=== PATIENT | female | born 1985 | race Caucasian/White ===

== ENCOUNTER 2016-10-13 21:26 | Emergency (ER) | payer MEDICAID ==
[~2016-10-13 21:26] MED LIST: DOXY100T PO
[2016-10-13 21:47] VITALS: BP 104/74; PULSE 88; RESP 20; TEMP 98.6; O2SAT 98
[2016-10-13 22:02] VITALS: BP 115/64; PULSE 90; RESP 20; O2SAT 100
[2016-10-13 23:05] VITALS: BP 101/62; PULSE 79; RESP 20; O2SAT 100
[2016-10-14] MEDS ORDERED: PREN29TA PO
[2016-10-14 00:10] VITALS: BP 100/52; PULSE 84; RESP 20; O2SAT 99
[2016-10-14] MEDS ORDERED: SODIUM CHLOR 0.9% 1000 ML INJ 1,000 ML IV ONE (00:30)
[2016-10-14 00:40] LABS: BLOOD, URINE NEG (NEG); GLUCOSE,URINE NEG (NEG); KETONE, URINE NEG (NEG); NITRITE,URINE NEG (NEG)
[2016-10-14 00:42] LABS: AUTOMATED NEUTROPHIL # 5.4 TH/MM3 (1.8-7.7); BASOPHIL % 0.3 % (0.0-2.0); EOSINOPHIL # 0.2 TH/MM3 (0-0.4); EOSINOPHIL % 1.8 % (0.0-4.0); HEMATOCRIT 38.6 % (35.0-46.0); HEMO FLAGS DIFF FINAL; LYMPH % 34.1 % (9.0-44.0); LYMPHOCYTE # 3.2 TH/MM3 (1.0-4.8); MEAN CELL VOLUME 91.8 FL (80.0-100.0); MEAN CORPUSCULAR HEMOGLOBIN 30.9 PG (27.0-34.0); MEAN CORPUSCULAR HGB CONC 33.6 % (32.0-36.0); MONO % 5.8 % (0.0-8.0); PLATELET COUNT 203 TH/MM3 (150-450); RED CELL DISTRIBUTION WIDTH 12.3 % (11.6-17.2); WHITE BLOOD COUNT 9.3 TH/MM3 (4.0-11.0)
[2016-10-14 00:46] LABS: BACTERIA, URINE OCC /hpf; COMMENT (UR) CULT NOT INDICATED; CULTURE IF INDICATED CULT NOT INDICATED; RBC, URINE 0-2 /hpf (0-3); SQUAMOUS EPITHELIAL CELL URINE > 8 /hpf (0-5); URINE COLOR YELLOW (YELLW/STRAW)
[2016-10-14 00:47] LABS: POTASSIUM 3.3 MEQ/L (3.5-5.1)
[2016-10-14 00:49] LABS: BICARBONATE 24.9 MEQ/L (21.0-32.0)
[2016-10-14] MEDS ORDERED: METOCLOPRAMIDE HCL 10 MG/2 ML VIAL IV PUSH ONE (01:15)
[2016-10-14] MEDS ORDERED: PROM25TA5 PO (02:24)
--- NOTE | 2016-10-14 02:24 | PD ---
HPI Chief Complaint: Automation Qa Lead Problem/Complaint Time Seen by Provider: 00:24 Travel History International Travel<30 days: No Contact w/Intl Traveler<30days: No Traveled to known affect area: No History of Present Illness HPI 30 year-old female presents to the emergency department by private transportation for complaint of vomiting. Patient reports she is 15 weeks . Patient states she's been going to a fly tier he does not believe in administering any prescription medications. Patient states she is subsequently made an appointment with a new ABSEILING INSTRUCTOR but has not with this individual into this upcoming week. Patient complains of frequent vomiting. No bilious emesis no hematemesis or coffee-ground emesis. Patient denies any abdominal pain. Patient's had no dysuria frequency urgency flank pain or hematuria. Patient denies vaginal discharge or vaginal bleeding. Patient states one week ago she had an ultrasound and at that time she was dated at 14 weeks. Patient reports her last period was in July and her EDC is 04/05/17. Patient is taking vitamins. Patient is Ab0. Patient states first infant at age 42 days from complication of trisomy 13. PFSH Past Medical History Narrative Medical Depression, , LEEP procedure, Ab0; no tobacco use; nursing notes reviewed Depression: Yes Cancer: Yes (LEEP PROCEDURE) Diminished Hearing: No Tetanus Vaccination: Unknown Influenza Vaccination: Yes ?: LMP: JUL 17 2016 : 3 Para: 1 Miscarriage: 1 Past Surgical History Section: Yes (X2) Social History Alcohol Use: No Tobacco Use: No Substance Use: No Allergies-Medications (Allergen,Severity, Reaction): Coded Allergies: Amoxicillin (Verified Allergy, Severe, Rash, 10/13/16) Reported Meds & Prescriptions Reported Meds & Active Scripts Active Phenergan (Promethazine HCl) 25 Mg Tab 25 Mg PO Q6H PRN Reported Plus Iron 29-1 mg ( Vit-Iron Carbonyl) 1 Tab Tab 1 Tab PO DAILY Review of Systems Except as stated in HPI: all other systems reviewed are Neg General / Constitutional: No: Fever, Chills HENT: No: Congestion Cardiovascular: No: Chest Pain or Discomfort Gastrointestinal: Positive: Nausea, Vomiting, No: Abdominal Pain, Hematemesis , Hematochezia, Loss of Appetite Genitourinary: No: Dysuria, Hematuria, Pelvic Pain, Flank Pain, Discharge, Vaginal Bleeding Musculoskeletal: No: Myalgias, Arthralgias Skin: No Rash Neurologic: No: Weakness Psychiatric: No: Anxiety Endocrine: No: Heat Intolerance Hematologic/Lymphatic: No: Easy Bruising Physical Exam Narrative GENERAL: Well-developed well-nourished female in no acute distress no respiratory distress SKIN: Warm and dry. HEAD: Normocephalic. EYES: No scleral icterus. No injection or drainage. NECK: Supple, trachea midline. No JVD or lymphadenopathy. CARDIOVASCULAR: Regular rate and rhythm without murmurs, gallops, or rubs. RESPIRATORY: Breath sounds equal bilaterally. No accessory muscle use. GASTROINTESTINAL: Abdomen soft, non-tender, nondistended. heart tones right lower quadrant 160 bpm per RN MUSCULOSKELETAL: No cyanosis, or edema. BACK: Nontender without obvious deformity. No CVA tenderness. Data Data Last Documented VS Vital Signs Date Time Temp Pulse Resp B/P Pulse Ox O2 Delivery O2 Flow Rate FiO2 10/14/16 02:45 88 20 110/74 100 10/13/16 21:47 98.6 Orders Complete Blood Count With Diff (10/14/16 00:24) Basic Metabolic Panel (Bmp) (10/14/16 00:24) Urinalysis - C+S If Indicated (10/14/16 00:24) Sodium Chlor 0.9% 1000 Ml Inj (Ns 1000 M (10/14/16 00:30) Metoclopramide Inj (Reglan Inj) (10/14/16 01:15) Potassium Chloride (Kcl) (10/14/16 02:30) Labs Laboratory Tests Test 10/14/16 00:00 White Blood Count 9.3 TH/MM3 Red Blood Count 4.20 MIL/MM3 Hemoglobin 13.0 GM/DL Hematocrit 38.6 % Mean Corpuscular Volume 91.8 FL Mean Corpuscular Hemoglobin 30.9 PG Mean Corpuscular Hemoglobin 33.6 % Concent Red Cell Distribution Width 12.3 % Platelet Count 203 TH/MM3 Mean Platelet Volume 8.9 FL Neutrophils (%) (Auto) 58.0 % Lymphocytes (%) (Auto) 34.1 % Monocytes (%) (Auto) 5.8 % Eosinophils (%) (Auto) 1.8 % Basophils (%) (Auto) 0.3 % Neutrophils # (Auto) 5.4 TH/MM3 Lymphocytes # (Auto) 3.2 TH/MM3 Monocytes # (Auto) 0.5 TH/MM3 Eosinophils # (Auto) 0.2 TH/MM3 Basophils # (Auto) 0.0 TH/MM3 CBC Comment DIFF FINAL Differential Comment Urine Color YELLOW Urine Turbidity SLIGHT Urine pH 6.0 Urine Specific [place] 1.024 Urine Protein NEG mg/dL Urine Glucose (UA) NEG mg/dL Urine Ketones NEG mg/dL Urine Occult Blood NEG Urine Nitrite NEG Urine Bilirubin NEG Urine Leukocyte Esterase NEG Urine RBC 0-2 /hpf Urine WBC 3-5 /hpf Urine Squamous Epithelial > 8 /hpf Cells Urine Bacteria OCC /hpf Microscopic Urinalysis Comment CULT NOT INDICATED Sodium Level 139 MEQ/L Potassium Level 3.3 MEQ/L Chloride Level 105 MEQ/L Carbon Dioxide Level 24.9 MEQ/L Anion Gap 9 MEQ/L Blood Urea Nitrogen 5 MG/DL Creatinine 0.48 MG/DL Estimat Glomerular Filtration 153 ML/MIN Rate Random Glucose 87 MG/DL Calcium Level 8.4 MG/DL MDM Medical Decision Making Medical Screen Exam Complete: Yes Emergency Medical Condition: Yes Medical Record Reviewed: Yes Interpretation(s) CBC & BMP Diagram 10/14/16 00:00 Vital Signs Date Time Temp Pulse Resp B/P Pulse Ox O2 Delivery O2 Flow Rate FiO2 10/14/16 02:45 88 20 110/74 100 10/14/16 00:10 84 20 100/52 99 10/13/16 23:05 79 20 101/62 100 10/13/16 23:00 88 20 10/13/16 22:02 90 20 115/64 100 10/13/16 21:47 98.6 88 20 104/74 98 Differential Diagnosis Hyperemesis gravidarum, UTI, viral syndrome, electrolyte disturbance, dehydration Narrative Course IV access obtained and normal saline administered Reglan 10 mg IV administered Patient monitored in the emergency department after completion of IV fluids patient felt well able take oral hydration well and was stable for outpatient management Patient encouraged to follow-up with her accounting intern and given prescription for Phenergan to take as needed Diagnosis Primary Impression: Vomiting Qualified Code: R11.2 - Non-intractable vomiting with nausea, unspecified vomiting type Additional Impression: Qualified Code: Z3A.15 - 15 weeks gestation of Referrals: Senior Oracle Database Administrator call for appointment Patient Instructions: General Instructions Additional Instructions: Increase fluid hydration Follow clear liquid diet for next 12-24 hours advance as tolerated to bland/ Palu diet Increase intake of potassium containing foods and beverages to dietary intake Take Phenergan as prescribed as needed for nausea and/or vomiting Follow-up with your accounting intern Return to the emergency department for any concerns or change in condition Take acetaminophen/Tylenol every 4 hours as needed for fever 100.4F or greater or for minor pain Continue take vitamins Med/Other Pt SpecificInfo: Prescription(s) given Scripts Promethazine (Phenergan)25 Mg Tab25 Mg PO Q6H PRN (Nausea/Vomiting) #15 TAB Ref 0 Prov:Miracle Clark MD 10/14/16 Disposition: 01 DISCHARGE HOME Condition: Stable Miracle Clark MD Oct 14, 2016 02:24
[2016-10-14] MEDS ORDERED: POTASSIUM CHLORIDE 20 MEQ CONTROLLED RELEASE TAB PO ONE (02:30)
[2016-10-14 02:45] VITALS: BP 110/74
[2016-10-30] MEDS ORDERED: PREN1CAP7 PO (14:24)
[2016-10-30] MEDS ORDERED: PROM25TA5 PO (14:24)
[2016-10-31] MEDS ORDERED: PROM25TA5 PO (13:22)
[2016-10-31] MEDS ORDERED: PREN1CAP7 PO (13:22)
[2016-11-14] MEDS ORDERED: PROM25TA5 PO (14:47)
[2016-11-14] MEDS ORDERED: PREN1CAP7 PO (14:47)
[2016-12-06] MEDS ORDERED: PROM25TA10 PO (12:29)
[2016-12-19] MEDS ORDERED: PROM25TA10 PO (13:53)
[2016-12-25] MEDS ORDERED: PROM25TA10 PO (12:59)
== END 2016-10-14 02:52 | disposition home or self-care (01) ==
LOC: PHED 21:26
DX: O21.9 Vomiting of pregnancy, unspecified (principal); O99.342 Other mental disorders complicating pregnancy, second trimester; Z3A.15 15 weeks gestation of pregnancy
CPT/HCPCS: 80048; 81001; 85025; 96374; 99284; J2765; J7030

== ENCOUNTER 2017-03-29 08:26 | Inpatient (IN) | payer MEDICAID ==
[~2017-03-29] VITALS: Ht 162.6 cm; Wt 74.0 kg
[~2017-03-29 08:26] MED LIST changes: -DOXY100T PO; +PREN1CAP7 PO; +PREN29TA PO; +PROM25TA10 PO
[2017-03-29] MEDS ORDERED: LACTATED RINGER'S 1000 ML INJ 1,000 ML IV ONE (09:43)
[2017-03-29 09:55] LABS: AUTOMATED NEUTROPHIL # 5.1 TH/MM3 (1.8-7.7); BASOPHIL % 0.3 % (0.0-2.0); EOSINOPHIL # 0.2 TH/MM3 (0-0.4); EOSINOPHIL % 1.9 % (0.0-4.0); HEMO FLAGS DIFF FINAL; LYMPH % 30.6 % (9.0-44.0); LYMPHOCYTE # 2.6 TH/MM3 (1.0-4.8); MEAN CELL VOLUME 88.1 FL (80.0-100.0); MEAN CORPUSCULAR HEMOGLOBIN 28.7 PG (27.0-34.0); MEAN CORPUSCULAR HGB CONC 32.5 % (32.0-36.0); NEUT % 59.2 % (16.0-70.0); PLATELET COUNT 225 TH/MM3 (150-450); RED BLOOD COUNT 3.86 MIL/MM3 (4.00-5.30); WHITE BLOOD COUNT 8.6 TH/MM3 (4.0-11.0)
[2017-03-29 09:57] LABS: BACTERIA, URINE RARE /hpf; BLOOD, URINE NEG (NEG); COMMENT (UR) CULT NOT INDICATED; CULTURE IF INDICATED CULT NOT INDICATED; GLUCOSE,URINE NEG (NEG); KETONE, URINE NEG (NEG); MUCUS URINE FEW /lpf (OCC); NITRITE,URINE NEG (NEG); SQUAMOUS EPITHELIAL CELL URINE 3 /hpf (0-5); URINE COLOR YELLOW (YELLW/STRAW)
[2017-03-29] MEDS ORDERED: LACTATED RINGER'S 1000 ML INJ 1,000 ML IV SCH ×2 (10:13→17:37)
--- NOTE | 2017-03-29 10:18 | HHI.HP ---
HPI Chief Complaint Scheduled Date Seen: Mar 29, 2017 Travel History International Travel<30 Days: No Contact w/Intl Traveler<30Days: No Known Affected Area: No History of Present Illness HPI Mrs. Suazo is a 31 y/o at 39/1 weeks gestation presenting for scheduled repeat section. She endorses good movement and denies any loss of fluid, vaginal bleeding, discharge, or dysuria. Currently she has no complaints and denies a complete ROS. She endorses intermittent N/V she self medicates with marijuana. She [facility] for [facility] and reports no complications thus far in . PMHx significant for first being an urgent for distress as baby had Trisomy 18. Weeks Gestation: 39 Para: 2 : 3 History Past Medical History Medical History: Denies Significant Hx Obstetric History Obstetric History First - Urgent at full term for distress complicated by Trisomy 18 Second - Uncomplicated repeat C section Third - Uncomplicated thus far LEEP procedure for ASCUS - repeat PAP negative Past Surgical History Narrative Surgical LEEP procedure Family History Family History: Negative Social History Alcohol Use: No Tobacco Use: No Substance Abuse: Yes (Endoreses marijuana use for N/V) Allergies-Medications (Allergen,Severity, Reaction): Coded Allergies: amoxicillin (Verified Allergy, Severe, Rash, 03/29/17) Home Meds Active Scripts Promethazine (Phenergan) 25 Mg Tablet, 25 MG PO Q6H Y for NAUSEA OR VOMITING, # 30 TAB 0 Refills Prov:Alondra Workman MENS LOCKER ROOM ATTENDANT 03/13/17 W/O Vit A W/ Fe Fumar (Citranatal [place]) 27-1-260 Mg Cap, 1 CAP PO DAILY for Nutritional Supplement, #30 CAP 11 Refills Prov:Alice Rahman CNM MENS LOCKER ROOM ATTENDANT 11/14/16 Reported Medications Promethazine (Phenergan) 25 Mg Tablet, 25 MG PO Q6H Y for NAUSEA OR VOMITING, TAB 0 Refills 12/19/16 Vit-Iron Carbonyl ( Plus Iron 29-1 mg) 1 Tab Tab, 1 TAB PO DAILY for Nutritional Supplement, #30 TAB 0 Refills 10/14/16 Discontinued Scripts Azithromycin (Azithromycin) 500 Mg Tab, 500 MG PO DAILY for Infection for 7 Days , #7 TAB 0 Refills Prov:Cole Fernandez MD 03/19/17 Review of Systems Except as stated in HPI: all other systems reviewed are Neg Physical Exam Narrative GENERAL: Well-nourished, well-developed patient. SKIN: Warm and dry. HEAD: Normocephalic and atraumatic. EYES: No scleral icterus. No injection or drainage. ENT: No nasal drainage noted. Mucous membranes pink. Airway patent. NECK: Supple, trachea midline. No JVD. CARDIOVASCULAR: Regular rate and rhythm without murmurs, gallops, or rubs. RESPIRATORY: Breath sounds equal bilaterally. No accessory muscle use. ABDOMEN/GI: Abdomen soft, non-tender, bowel sounds present, no rebound, no guarding Gravid to 39w FHTs Category: 1 Baseline: 140s Reactive: Positive Variability: Moderate Decels: None EXTREMITIES: No cyanosis or edema. BACK: Nontender without obvious deformity. No CVA tenderness. NEUROLOGICAL: Awake and alert. Motor and sensory grossly within normal limits. Five out of 5 muscle strength in all muscle groups. Normal speech. Caprini VTE Risk Assessment Caprini VTE Risk Assessment: Mod/High Risk (score >= 2) Caprini Risk Assessment Model Point Value = 1 Point Value = 2 Point Value = 3 Point Value = 5 Age 41-60 Minor surgery BMI > 25 kg/m2 Swollen legs Varicose veins or History of unexplained or recurrent spontaneous Oral contraceptives or hormone replacement Sepsis (< 1 month) Serious lung disease, including pneumonia (< 1 month) Abnormal pulmonary function Acute myocardial infarction Congestive heart failure (< 1 month) History of inflammatory bowel disease Medical patient at bed rest Age 61-74 Arthroscopic surgery Major open surgery (> 45 min) Laparoscopic surgery (> 45 min) Malignancy Confined to bed (> 72 hours) Immobilizing plaster cast Central venous access Age >= 75 History of VTE Family history of VTE Factor V Leiden Prothrombin [id number] Lupus anticoagulant Anticardiolipin antibodies Elevated serum homocysteine Heparin-induced thrombocytopenia Other congenital or acquired thrombophilia Stroke (< 1 month) Elective arthroplasty Hip, pelvis, or leg fracture Acute spinal cord injury (< 1 month) Prophylaxis Regimen Total Risk Factor Score Risk Level Prophylaxis Regimen 0-1 Low Early ambulation 2 Moderate Order ONE of the following: *Sequential Compression Device (SCD) *Heparin 5000 units SQ BID 3-4 Higher Order ONE of the following medications: *Heparin 5000 units SQ TID *Enoxaparin/Lovenox 40 mg SQ daily (WT < 150 kg, CrCl > 30 mL/min) *Enoxaparin/Lovenox 30 mg SQ daily (WT < 150 kg, CrCl > 10-29 mL/min) *Enoxaparin/Lovenox 30 mg SQ BID (WT < 150 kg, CrCl > 30 mL/min) AND/OR *Sequential Compression Device (SCD) 5 or more Highest Order ONE of the following medications: *Heparin 5000 units SQ TID (Preferred with Epidurals) *Enoxaparin/Lovenox 40 mg SQ daily (WT < 150 kg, CrCl > 30 mL/min) *Enoxaparin/Lovenox 30 mg SQ daily (WT < 150 kg, CrCl > 10-29 mL/min) *Enoxaparin/Lovenox 30 mg SQ BID (WT < 150 kg, CrCl > 30 mL/min) AND *Sequential Compression Device (SCD) Data Data Vital Signs Reviewed: Yes Orders Orders Admit To Inpatient (03/29/17 ) Code Status (03/29/17 09:43) Vital Signs (Adult) .ON ADMISSION (03/29/17 09:43) Activity Oob Ad Cristy (03/29/17 09:43) Heart (03/29/17 09:43) Urinary Catheter Management GUDELIA.Q8H (03/29/17 09:43) ^ Preps (03/29/17 09:43) Scd / Garry / Foot Pump GUDELIA.QSHIFT (03/29/17 09:43) ^ Ultrasound For Locatio (03/29/17 09:43) Diet Npo (03/29/17 Breakfast) Lactated Ringer's 1000 Ml Inj (Lr 1000 M (03/29/17 09:43) Lactated Ringer's 1000 Ml Inj (Lr 1000 M (03/29/17 10:13) Citric Acid-Sodium Citrate Liq (Bicitra (03/29/17 11:15) Type And Screen (03/29/17 09:43) Complete Blood Count With Diff (03/29/17 09:43) Urinalysis - C+S If Indicated (03/29/17 09:43) Inpatient Certification (03/29/17 ) Specimen To Be Collected PRN (03/29/17 09:43) Clindamycin Inj (Cleocin Inj) (03/29/17 10:45) Labs Laboratory Tests Test 03/29/17 09:10 White Blood Count 8.6 Red Blood Count 3.86 Hemoglobin 11.1 Hematocrit 34.0 Mean Corpuscular Volume 88.1 Mean Corpuscular Hemoglobin 28.7 Mean Corpuscular Hemoglobin Concent 32.5 Red Cell Distribution Width 14.0 Platelet Count 225 Mean Platelet Volume 9.0 Neutrophils (%) (Auto) 59.2 Lymphocytes (%) (Auto) 30.6 Monocytes (%) (Auto) 8.0 Eosinophils (%) (Auto) 1.9 Basophils (%) (Auto) 0.3 Neutrophils # (Auto) 5.1 Lymphocytes # (Auto) 2.6 Monocytes # (Auto) 0.7 Eosinophils # (Auto) 0.2 Basophils # (Auto) 0.0 CBC Comment DIFF FINAL Differential Comment Urine Color YELLOW Urine Turbidity CLEAR Urine pH 7.0 Urine Specific [place] 1.015 Urine Protein TRACE Urine Glucose (UA) NEG Urine Ketones NEG Urine Occult Blood NEG Urine Nitrite NEG Urine Bilirubin NEG Urine Urobilinogen LESS THAN 2.0 Urine Leukocyte Esterase NEG Urine RBC LESS THAN 1 Urine WBC 1 Urine Squamous Epithelial Cells 3 Urine Bacteria RARE Urine Mucus FEW Microscopic Urinalysis Comment CULT NOT INDICATED Assessment/Plan Problem List: (1) 39 weeks gestation of ICD Codes: Z3A.39 - 39 weeks gestation of Status: Acute Assessment and Plan Mrs. Suazo is a 31 y/o at 39/1 weeks gestation presenting for scheduled repeat section 1. IUP at 39 weeks -Continue routine antepartum care - uncomplicated thus far -FHT category 1, reassuring 2. Scheduled Repeat -Patient NPO for procedure -Orders placed -Penicillin allergic patient, prophylactic Clindamycin ordered SDW: Dr. Hardy Discharge Planning Pending clinical course Alex Collier MD R2 Mar 29, 2017 10:18
[2017-03-29] MEDS ORDERED: ACETAMINOPHEN 1000 MG/100 ML 100 ML IV ONE (10:41)
[2017-03-29] MEDS ORDERED: CLINDAMYCIN INJ 600 MG in SODIUM CHLORIDE 0.9% INJ 100 ML IV SCH (10:45)
[2017-03-29] MEDS ORDERED: CLINDAMYCIN PHOS 600 MG/4 ML VIAL ONE (10:59)
[2017-03-29] MEDS ORDERED: EPIDURAL-DIPHENHYDRAMINE HCL 50 MG/ML VIAL IV PUSH PRN (11:10)
[2017-03-29] MEDS ORDERED: EPIDURAL-NO SYSTEMIC NARCOTICS PRN (11:10)
[2017-03-29] MEDS ORDERED: EPIDURAL-DO NOT ADMINISTER ANTICOAGULANTS PRN (11:10)
[2017-03-29] MEDS ORDERED: EPIDURAL-DIPHENHYDRAMINE HCL 50 MG CAP PO PRN (11:10)
[2017-03-29] MEDS ORDERED: EPIDURAL-NALOXONE HCL 0.4 MG/ML AMP IV PUSH PRN (11:10)
[2017-03-29] MEDS ORDERED: CITRIC ACID-SODIUM CITRATE LIQ 30 ML UDC PO SCH (11:15)
[2017-03-29] MEDS ORDERED: ONDANSETRON HCL 4 MG/2 ML VIAL IV PUSH ONE (12:00)
[2017-03-29] MEDS ORDERED: OXYTOCIN 10 UNIT/ML AMP IV ONE (12:00)
[2017-03-29] MEDS ORDERED: MORPHINE SULFATE 4 MG/ML INJ IV ONE (12:00)
[2017-03-29] MEDS ORDERED: LACTATED RINGER'S 1000 ML INJ 2,000 ML IV ONE (12:00)
[2017-03-29] MEDS ORDERED: ePHEDrine/NS 25 MG/5 ML SYR IV ONE (12:00)
[2017-03-29] MEDS ORDERED: MORPHINE SULFATE PF 5 MG/10 ML VIAL ONE (12:00)
[2017-03-29] MEDS ORDERED: ZOLPIDEM TARTRATE 5 MG TAB PO PRN (12:45)
[2017-03-29] MEDS ORDERED: SODIUM CHLORIDE 0.9% FLUSH 10 ML FLUSH IV FLUSH PRN (12:45)
[2017-03-29] MEDS ORDERED: DOCUSATE SODIUM 50 MG/SENNA 8.6 MG TAB PO PRN (12:45)
[2017-03-29] MEDS ORDERED: SIMETHICONE 80 MG CHEWABLE TAB PO PRN (12:45)
[2017-03-29] MEDS ORDERED: OXYTOCIN 30 UNITS-500ML PREMIX 500 ML IV ONE (12:45)
[2017-03-29] MEDS ORDERED: oxyCODONE/ACETAMINOPHEN 5 MG/325 MG TAB PO PRN (12:45)
[2017-03-29] MEDS ORDERED: ACETAMINOPHEN 325 MG TAB PO PRN (12:45)
--- NOTE | 2017-03-29 13:35 | MP ---
cc: NIKI HARDY MD DATE OF SURGERY 03/29/2017 PREOPERATIVE DIAGNOSIS Previous at term for repeat , tubal ligation. POSTOPERATIVE DIAGNOSIS Previous at term for repeat , tubal ligation. PROCEDURE PERFORMED Repeat low transverse section, bilateral salpingectomy, drainage of right ovarian mucinous cystadenoma. SURGEON Niki Hardy MD CELL EFFICIENCY SUPERVISOR Dr. Ordonez, [facility] ANESTHESIA Spinal PREOP NOTE The patient is a 31 year-old white female G3, P2 previous section times two at 39 weeks who presents for repeat section. She also wants a tubal ligation in the form of bilateral salpingectomy, removal of both tubes completely and we will proceed. PROCEDURE The patient was taken to the operating room, placed in the supine position on the operating room table. After adequate spinal anesthesia was administered, she was prepped and draped for abdominal surgery. A previous Pfannenstiel incision was excised out and cast away. The incision carried through the fascia sharply and dissected laterally and off of the rectus muscle. The peritoneal cavity entered in the midline. The incision was extended superiorly and inferiorly and a bladder blade placed at the lower edge of the incision. The visceral peritoneum reflected off the lower uterine segment, placed on the bladder blade. A transverse hysterotomy was made and extended bluntly bilaterally and clear fluid noted. A male was delivered at 11:34 a.m., 's 9 and 9, weight 3450 grams. There were no complications. Cord blood obtained. The placenta manually extracted. The hysterotomy closed with a running layer of 0-chromic followed by imbricating suture of same. Hemostasis was achieved. The bladder reapproximated using a stick-tie of Vicryl in a running suture along the visceral peritoneum. The tubal was then performed. The left tube was elevated with a Candis clamp in a sequential clamp, cut and tie technique using a Kelsi clamp across the mesosalpinx to the cornu. This removed the tube completely and was cast off to pathology. All stick-ties were hemostatic along the mesosalpinx. The same was done on the opposite side removing the opposite tube in total. Hemostasis was achieved. The right ovary had a golf-ball sized cyst on it. This was drained. It was a mucinous cystadenoma. A lot of mucin material drained from that ovarian cyst. Hemostasis achieved on that ovary. The uterus was then replaced in the peritoneal cavity. Blood suctioned from the cul-de-sac and gutters. The parietoperitoneum closed in a running layer of 2-0 Vicryl. The fascia closed in a running layer of 0 Vicryl. The subcutaneous tissues were reapproximated with 3-0 plain gut and the skin closed with running 3-0 Monocryl subcuticular stitch. A pressure dressing applied. ESTIMATED BLOOD LOSS 500 cc COMPLICATIONS There were no complications. Sponge and needle counts were correct x 2. The patient was taken to Recovery in stable condition. MD GONSALO Napier/CARLOS /12:45 PM /1:24 PM
[2017-03-29] MEDS: IBUPROFEN 600 MG TAB PO PRN (16:25)
[2017-03-29] MEDS: ONDANSETRON HCL 4 MG/2 ML VIAL IV PUSH PRN ×2 (16:26→22:00)
[2017-03-29] MEDS: oxyCODONE/ACETAMINOPHEN 5 MG/325 MG TAB PO PRN (20:10)
[2017-03-29] MEDS ORDERED: SODIUM CHLORIDE 0.9% FLUSH 10 ML FLUSH IV FLUSH SCH (21:00)
[2017-03-29] MEDS ORDERED: OXYTOCIN 30 UNITS-500ML PREMIX 500 ML IV PRN (22:45)
[2017-03-30] MEDS: oxyCODONE/ACETAMINOPHEN 5 MG/325 MG TAB PO PRN ×3 (03:26→20:20)
[2017-03-30 06:52] LABS: AUTOMATED NEUTROPHIL # 7.7 TH/MM3 (1.8-7.7); BASOPHIL % 0.2 % (0.0-2.0); EOSINOPHIL # 0.1 TH/MM3 (0-0.4); EOSINOPHIL % 1.1 % (0.0-4.0); HEMATOCRIT 28.4 % (35.0-46.0); HEMO FLAGS DIFF FINAL; LYMPH % 21.6 % (9.0-44.0); LYMPHOCYTE # 2.4 TH/MM3 (1.0-4.8); MEAN CELL VOLUME 87.9 FL (80.0-100.0); MEAN CORPUSCULAR HEMOGLOBIN 28.7 PG (27.0-34.0); MEAN CORPUSCULAR HGB CONC 32.7 % (32.0-36.0); MONO % 8.2 % (0.0-8.0); NEUT % 68.9 % (16.0-70.0); PLATELET COUNT 182 TH/MM3 (150-450); RED BLOOD COUNT 3.23 MIL/MM3 (4.00-5.30); RED CELL DISTRIBUTION WIDTH 14.1 % (11.6-17.2); WHITE BLOOD COUNT 11.2 TH/MM3 (4.0-11.0)
[2017-03-30] MEDS: ONDANSETRON HCL 4 MG/2 ML VIAL IV PUSH PRN (08:08)
--- NOTE | 2017-03-30 08:32 | HHI.OB ---
Subjective Post Operative Day: 1 Remarks Pt seen and examined this morning. Postoperative day # 1 AFVSS overnight. Incision nondraining. Decreased lochia. Denies dysuria. No breast tenderness. She is feeding the baby via bottle. Appetite good. No nausea or vomiting. Patient has not yet had a bowel movement, but does endorse bowel gas. Ambulating well. Denies calf pain or shortness of breath. Otherwise, she is doing well this morning and has no other concerns. Objective Result Diagram: 03/30/17 0635 Objective Remarks GENERAL: Well-nourished, well-developed patient. CARDIOVASCULAR: Regular rate and rhythm without murmurs, gallops, or rubs. RESPIRATORY: Breath sounds equal bilaterally. No accessory muscle use. ABDOMEN/GI: Abdomen soft, non-tender, bowel sounds present. Incision: Clean, dry and intact. Fundus: Firm, non-tender at umbilicus. GENITOURINARY: Light to moderate bleeding. EXTREMITIES: No cyanosis or edema, non-tender, without signs of DVT. Medications and IVs Current Medications Medications (Trade) Dose Ordered Sig/Kaitlynn Route Start Time Stop Time Status Last Admin (Bicitra Liq) 30 ml RN SOCIAL SERVICES PO 03/29/17 11:15 04/02/17 11:14 Clindamycin Phosphate 600 mg/ Sodium Chloride 104 ml @ 200 mls/hr RN SOCIAL SERVICES IV 03/29/17 10:45 04/02/17 10:44 Lactated Ringer's 1,000 ml @ 100 mls/hr Q10H IV 03/29/17 17:37 03/30/17 13:36 Oxytocin 500 ml @ 100 mls/hr UNSCH X1 PRN IV 03/29/17 22:45 03/30/17 22:44 (NS Flush) 2 ml BID IV FLUSH 03/29/17 21:00 03/29/17 21:00 (NS Flush) 2 ml UNSCH PRN IV FLUSH 03/29/17 12:45 (Mylicon Chew) 80 mg QID PRN PO 03/29/17 12:45 (Tylenol) 650 mg Q6H PRN PO 03/29/17 12:45 (Motrin) 600 mg Q6H PRN PO 03/29/17 12:45 03/29/17 16:25 (Percocet 5-325 Mg) 1 tab Q4H PRN PO 03/29/17 12:45 (Percocet 5-325 Mg) 2 tab Q4H PRN PO 03/29/17 12:45 03/30/17 03:26 (Barbara-Colace) 2 tab Q12H PRN PO 03/29/17 12:45 (Ambien) 5 mg HS PRN PO 03/29/17 12:45 03/29/17 22:00 (M-M-R Ii Inj) 0.5 ml ONCE ONCE SQ 03/30/17 16:00 03/30/17 16:01 (Boostrix Inj) 0.5 ml ONCE ONCE IM 03/30/17 16:00 03/30/17 16:01 (Zofran Inj) 4 mg Q6H PRN IV PUSH 03/29/17 12:45 03/30/17 08:08 Miscellaneous Information NO SYSTEMIC NARCOTICS TO BE GIVEN FO... UNSCH PRN .XX 03/29/17 11:10 03/30/17 11:09 (Narcan Inj) 0.4 mg UNSCH PRN IV PUSH 03/29/17 11:10 03/30/17 11:09 (Benadryl Inj) 25 mg Q6H PRN IV PUSH 03/29/17 11:10 03/30/17 11:09 (Benadryl) 50 mg Q6H PRN PO 03/29/17 11:10 03/30/17 11:09 Miscellaneous Information ALL NURSING DEPARTMENTS UNSCH PRN .XX 03/29/17 11:10 03/30/17 11:09 Assessment/Plan Problem List: (1) 39 weeks gestation of ICD Codes: Z3A.39 - 39 weeks gestation of Status: Acute (2) delivery delivered ICD Codes: O82 - Encounter for delivery without indication Assessment and Plan 31 y/o female who is postoperative day # 1 s/p section. -Continue routine care. -Percocet and Motrin PRN pain. -Repeat H/H: 9.3/28.4 -Encouraged OOB. Advised pelvic rest for 6 wks. Patient will need follow-up appointment in 1 week for incision check. -Re: ctrl, she would like discuss her options of follow-up appointment. -Anticipate discharge in 1-2 days. anayeli Hardy MD Discharge Planning 1-2 days Alex Collier MD R2 Mar 30, 2017 08:32
[2017-03-30] MEDS: IBUPROFEN 600 MG TAB PO PRN ×2 (10:18→20:19)
[2017-03-30 11:50] VITALS: BP 108/56; PULSE 57; RESP 20; TEMP 98.1
[2017-03-30] MEDS ORDERED: PROMETHAZINE INJ 25 MG/ML VIAL IM PRN (14:45)
[2017-03-30] MEDS ORDERED: MEASLES, MUMPS, RUBELLA VACCINE 0.5 ML VIAL SQ ONE (16:00)
[2017-03-30] MEDS ORDERED: DIPHTH/TETANUS/ACEL PERTUSSIS (BOOSTER) 0.5 ML VIAL/PFS IM ONE (16:00)
[2017-03-31] MEDS: IBUPROFEN 600 MG TAB PO PRN ×2 (02:20→09:30)
[2017-03-31] MEDS: oxyCODONE/ACETAMINOPHEN 5 MG/325 MG TAB PO PRN ×3 (02:20→13:58)
[2017-03-31] MEDS ORDERED: SENN1TAB PO (09:36)
[2017-03-31] MEDS ORDERED: OXYC1TAB63 PO (09:36)
[2017-03-31] MEDS ORDERED: IBUP-232 PO (09:36)
--- NOTE | 2017-03-31 09:37 | HHI.DCPOC ---
Discharge Care Plan Diagnosis: (1) delivery delivered Report Symptoms to Your Doctor -Temperature above 100.5 degrees -Redness, of incision or excessive or foul smelling drainage -Unusual pain or calf pain -Increased vaginal bleeding -Painful or difficulty urinating -Feelings of extreme sadness or anxiety after 2 weeks Goals to Promote Your Health * To prevent worsening of your condition and complications * To maintain your health at the optimal level Directions to Meet Your Goals Take your medications as prescribed Follow your dietary instruction Follow activity as directed Ensure plenty of rest for recovery Drink fluids for hydration Keep your appointments as scheduled Take your immunizations and boosters as scheduled If your symptoms worsen call your PCP, if no PCP go to Urgent Care Center or Emergency Room Smoking is Dangerous to Your Health. Avoid second hand smoke Call the 24-hour crisis hotline for domestic abuse at Alex Collier MD R2 Mar 31, 2017 09:37
--- NOTE | 2017-03-31 10:38 | HHI.OB ---
Subjective Post Operative Day: 2 Remarks Pt seen and examined this morning. Postoperative day # 2 AFVSS overnight. Incision nondraining. Decreased lochia. Denies dysuria. No breast tenderness. She is feeding the baby via breast and bottle. Appetite good. No nausea or vomiting. Patient endorses having a bowel movement and passing bowel gas. Ambulating well. Denies calf pain or shortness of breath. Otherwise, she is doing well this morning and has no other concerns. Objective Vitals/I&O Vital Signs Date Time Temp Pulse Resp B/P (MAP) Pulse Ox O2 Delivery O2 Flow Rate FiO2 03/30/17 11:50 98.1 57 20 108/56 (73) Result Diagram: 03/30/17 0635 Objective Remarks GENERAL: Well-nourished, well-developed patient. CARDIOVASCULAR: Regular rate and rhythm without murmurs, gallops, or rubs. RESPIRATORY: Breath sounds equal bilaterally. No accessory muscle use. ABDOMEN/GI: Abdomen soft, non-tender, bowel sounds present. Incision: Clean, dry and intact. Fundus: Firm, non-tender at umbilicus. GENITOURINARY: Light to moderate bleeding. EXTREMITIES: No cyanosis or edema, non-tender, without signs of DVT. Medications and IVs Current Medications Medications (Trade) Dose Ordered Sig/Kaitlynn Route Start Time Stop Time Status Last Admin (Bicitra Liq) 30 ml [employer] PO 03/29/17 11:15 04/02/17 11:14 Clindamycin Phosphate 600 mg/ Sodium Chloride 104 ml @ 200 mls/hr [employer] IV 03/29/17 10:45 04/02/17 10:44 (NS Flush) 2 ml BID IV FLUSH 03/29/17 21:00 03/29/17 21:00 (NS Flush) 2 ml UNSCH PRN IV FLUSH 03/29/17 12:45 (Mylicon Chew) 80 mg QID PRN PO 03/29/17 12:45 (Tylenol) 650 mg Q6H PRN PO 03/29/17 12:45 (Motrin) 600 mg Q6H PRN PO 03/29/17 12:45 03/31/17 09:30 (Percocet 5-325 Mg) 1 tab Q4H PRN PO 03/29/17 12:45 (Percocet 5-325 Mg) 2 tab Q4H PRN PO 03/29/17 12:45 03/31/17 09:30 (Barbara-Colace) 2 tab Q12H PRN PO 03/29/17 12:45 03/30/17 20:19 (Ambien) 5 mg HS PRN PO 03/29/17 12:45 03/29/17 22:00 (Zofran Inj) 4 mg Q6H PRN IV PUSH 03/29/17 12:45 03/30/17 08:08 (Phenergan Inj) 25 mg Q6H PRN IM 03/30/17 14:45 03/30/17 14:49 Assessment/Plan Problem List: (1) 39 weeks gestation of ICD Codes: Z3A.39 - 39 weeks gestation of Status: Acute (2) delivery delivered ICD Codes: O82 - Encounter for delivery without indication Status: Acute Assessment and Plan 31 y/o female who is postoperative day # 2 s/p section. -Continue routine care. -Percocet and Motrin PRN pain. -Repeat H/H: 9.3/28.4 -Encouraged OOB. Advised pelvic rest for 6 wks. Patient will need follow-up appointment in 1 week for incision check. -Re: ctrl, she would like discuss her options of follow-up appointment. -Anticipate discharge today with baby. anayeli Pringle MD Discharge Planning Today with baby Alex Collier MD R2 Mar 31, 2017 10:38
[2017-04-03 06:55] LABS: BATH SALTS (MDPV) UR NEG (NEG); ECSTASY (MDMA) UR NEG (NEG); GABAPENTIN UR NEG (NEG); HEROIN (6-ACETYLMORPHINE) UR NEG (NEG); HYDROMORPHONE U NEG (NEG); K2 SPICE UR NEG (NEG); OBMETHADONE UR NEG (NEG); PHENCYCLIDINE URINE NEG (NEG)
[2017-04-12] MEDS ORDERED: SULF1TAB58 PO (11:11)
[2017-04-12] MEDS ORDERED: FERRTAB2 PO (11:11)
== END 2017-03-31 15:15 | disposition home or self-care (01) | DRG 765 ==
LOC: H2EB 08:26 → H1EA 13:40
PROVIDERS: ADMIT Obstetrics & Gynecology Maternal & Fetal Medicine; ATTEND Obstetrics & Gynecology Maternal & Fetal Medicine
PROC: 10D00Z1 Extraction of Products of Conception, Low, Open Approach (ICD-10-PCS; principal; 2017-03-29)
PROC: 0UB70ZZ Excision of Bilateral Fallopian Tubes, Open Approach (ICD-10-PCS; 2017-03-29)
PROC: 0U900ZZ Drainage of Right Ovary, Open Approach (ICD-10-PCS; 2017-03-29)
DX: O34.219 Maternal care for unspecified type scar from previous cesarean delivery (principal); O99.324 Drug use complicating childbirth; Z37.0 Single live birth; O34.83 Maternal care for other abnormalities of pelvic organs, third trimester; N83.209 Unspecified ovarian cyst, unspecified side; F12.90 Cannabis use, unspecified, uncomplicated; Z30.2 Encounter for sterilization; Z3A.39 39 weeks gestation of pregnancy
CPT/HCPCS: 59025; 80307; 81001; 85025; 86850; 86900; 86901; 88302; 90715; G0481; J0131; J2270; J2274; J2405; J2550; J2590; J7120

== ENCOUNTER 2017-11-24 12:29 | Emergency (ER) | payer MEDICAID ==
[~2017-11-24] VITALS: Ht 165.1 cm; Wt 59.0 kg
[~2017-11-24 12:29] MED LIST changes: -PREN1CAP7 PO; -PROM25TA10 PO
[2017-11-24 12:38] VITALS: BP 132/74; PULSE 63; RESP 16; TEMP 98.5; O2SAT 96
[2017-11-24] MEDS ORDERED: CLIN300C5 PO (13:00)
[2017-11-24] MEDS ORDERED: CLINDAMYCIN 150 MG CAP PO ONE (13:00)
[2017-11-24] MEDS ORDERED: IBUPROFEN 600 MG TAB PO ONE (13:00)
[2017-11-24] MEDS ORDERED: IBUP-232 PO (13:00)
--- NOTE | 2017-11-24 13:03 | PD ---
HPI Chief Complaint: Oral / Dental Pain or Problem Time Seen by Provider: 12:49 Travel History International Travel<30 days: No Contact w/Intl Traveler<30days: No Traveled to known affect area: No History of Present Illness HPI Patient is a 32-year-old female who presents the emergency room with complaints of lower teeth pain. Patient reports that symptoms have been ongoing for the past few months, she has been on 2 courses of antibiotics and reports that she is trying to make an appointment with a dentist. She did arrange to see a dentist in a month, reports that she cannot be seen earlier. Patient with no fever or chills, no other complaints. PFSH Past Medical History Medical History: Denies Significant Hx Depression: Yes Cancer: Yes (LEEP PROCEDURE) Diminished Hearing: No ?: Not LMP: LAST MONTH : 3 Para: 1 Miscarriage: 1 Past Surgical History Section: Yes (X2) Social History Alcohol Use: No Tobacco Use: No Substance Use: No Allergies-Medications (Allergen,Severity, Reaction): Coded Allergies: amoxicillin (Verified Allergy, Severe, Rash, 11/24/17) Reported Meds & Prescriptions Reported Meds & Active Scripts Active Ibuprofen 600 Mg Tab 600 Mg PO Q6H PRN Clindamycin (Clindamycin HCl) 300 Mg Cap 300 Mg PO Q6H 10 Days Review of Systems General / Constitutional: No: Fever Eyes: No: Visual changes HENT: Positive: Dental Difficulties, No: Headaches Cardiovascular: No: Chest Pain or Discomfort Respiratory: No: Shortness of Breath Gastrointestinal: No: Abdominal Pain Genitourinary: No: Dysuria Musculoskeletal: No: Pain Skin: No Rash Neurologic: No: Weakness Psychiatric: No: Depression Endocrine: No: Polydipsia Hematologic/Lymphatic: No: Easy Bruising Physical Exam Narrative GENERAL: Well-nourished, well-developed patient. SKIN: Focused skin assessment warm/dry. HEAD: Normocephalic. EYES: No scleral icterus. No injection or drainage. NECK: Supple, trachea midline. No JVD or lymphadenopathy. Mouth: Patient with overall poor dentition, patient with no cervical lymph adenopathy, patient does have a cracked tooth to the left bottom molar CARDIOVASCULAR: Regular rate and rhythm without murmurs, gallops, or rubs. RESPIRATORY: Breath sounds equal bilaterally. No accessory muscle use. GASTROINTESTINAL: Abdomen soft, non-tender, nondistended. MUSCULOSKELETAL: No cyanosis, or edema. BACK: Nontender without obvious deformity. No CVA tenderness. Data Data Last Documented VS Vital Signs Date Time Temp Pulse Resp B/P (MAP) Pulse Ox O2 Delivery O2 Flow Rate FiO2 11/24/17 12:38 98.5 63 16 132/74 (93) 96 Orders Orders Clindamycin (Cleocin) (11/24/17 13:00) Ibuprofen (Motrin) (11/24/17 13:00) Ed Urine Pregnancytest Poc (11/24/17 12:59) MDM Medical Decision Making Medical Screen Exam Complete: Yes Emergency Medical Condition: Yes Medical Record Reviewed: Yes Interpretation(s) Vital Signs Date Time Temp Pulse Resp B/P (MAP) Pulse Ox O2 Delivery O2 Flow Rate FiO2 11/24/17 12:38 98.5 63 16 132/74 (93) 96 Differential Diagnosis tooth pain vs infection Narrative Course Patient will follow-up with a dentist as soon as possible, she does have an appointment in 1 month. She has been on 2 courses of azithromycin, will start on clindamycin. Understands need to eat plenty of yogurt or probiotics with her antibiotics. She will return to ER as needed Diagnosis Primary Impression: Tooth pain Additional Instructions: Please follow-up with a dentist as soon as possible Return to the emergency room as needed Med/Other Pt SpecificInfo: Prescription(s) given Scripts Ibuprofen (Ibuprofen) 600 Mg Tab 600 MG PO Q6H Y for Pain/Inflammation, #40 TAB 0 Refills Prov: Yokasta Benitez DO 11/24/17 Clindamycin (Clindamycin) 300 Mg Cap 300 MG PO Q6H for Infection for 10 Days, #40 CAP 0 Refills Prov: Yokasta Benitez DO 11/24/17 Disposition: 01 DISCHARGE HOME Condition: Stable Yokasta Benitez DO November 24, 2017 13:03
== END 2017-11-24 13:28 | disposition home or self-care (01) ==
LOC: PHEFT 12:29
DX: K08.89 Other specified disorders of teeth and supporting structures (principal)
CPT/HCPCS: 84703; 99283